=== PATIENT | female | born 1955 | race Caucasian/White ===

== ENCOUNTER 2023-07-10 11:45 | Emergency (ER) | payer OTHER ==
[~2023-07-10] VITALS: Ht 162.6 cm; Wt 63.5 kg
[2023-07-10 11:59] VITALS: BP_SYST 166; PULSE 76; RESP 20; TEMP 98.3; O2SAT 96
[2023-07-10] MEDS ORDERED: ONDANSETRON HCL 4 MG/2 ML VIAL IVP ONE (12:30)
[2023-07-10 12:51] LABS: BASOPHILS % (AUTO) 0.4 % (0.0-2.0); EOSINOPHILS % (AUTO) 0.4 % (0.0-4.0); HEMATOCRIT 43.7 % (36-48); HEMOGLOBIN 14.5 g/dL (12.0-16.0); LYMPHOCYTES # (AUTO) 1.8 K/uL (1.0-5.5); LYMPHOCYTES % (AUTO) 19.2 % (20.5-51.5); MEAN CORPUSCULAR HEMOGLOBIN 29 pg (27-31); MEAN CORPUSCULAR HGB CONC 33 % (32-36); MEAN CORPUSCULAR VOLUME 87 fL (79.0-98.0); MONOCYTES # (AUTO) 0.6 K/uL (0.0-1.0); MONOCYTES % (AUTO) 6.7 % (1.7-9.3); NEUTROPHILS # (AUTO) 6.7 K/uL (1.8-7.7); NEUTROPHILS % (AUTO) 73.3 % (40.0-70.0); PLATELET COUNT (AUTO) 202 K/uL (130-430); RED BLOOD CELL COUNT(AUTO) 5.01 MIL/uL (4.2-6.2); RED CELL DISTRIBUTION WIDTH 13.5 % (9.0-15.0); WHITE BLOOD COUNT (AUTO) 9.2 K/uL (4.8-10.8)
[2023-07-10 13:05] LABS: PROTHROMBIN TIME 10.2 SECS (9.5-12.5)
[2023-07-10 13:07] LABS: ALANINE AMINOTRANSFERASE 59 U/L (12-78); ANION GAP 10 (5-15); ASPARTATE AMINOTRANSFERASE 37 U/L (10-37); BILIRUBIN,DIRECT 0.1 mg/dL (0.0-0.3); CALCIUM 9.6 mg/dL (8.4-11.0); CARBON DIOXIDE 25 mmol/L (23-29); CHLORIDE 97 mmol/L (98-107); CREATININE 0.84 mg/dL (0.55-1.30); GFR AFRICAN AMERICAN 86 mL/min (>90); GLUCOSE 189 mg/dL (74-106); SODIUM SERUM 132 mmol/L (136-145); TOTAL BILIRUBIN 0.6 mg/dL (0.0-1.0); TOTAL PROTEIN, SERUM 7.8 g/dL (6.4-8.3); UREA NITROGEN, BLOOD 19 mg/dL (8-21)
[2023-07-10 13:10] LABS: GFR NON AFRICAN-AMERICAN 71 mL/min (>90); POTASSIUM 2.8 mmol/L (3.5-5.1)
[2023-07-10] MEDS ORDERED: LORazepam 2 MG/ML VIAL IVP ONE (13:15)
[2023-07-10] MEDS ORDERED: METOCLOPRAMIDE HCL 10 MG/2 ML VIAL IVP ONE (13:15)
[2023-07-10] MEDS ORDERED: MECLIZINE HCL 25 MG TABLET (ANITVERT) PO ONE (13:15)
[2023-07-10] MEDS ORDERED: POTASSIUM CHLORIDE 20 MEQ/PKT PACKET PO ONE (13:45)
[2023-07-10] MEDS ORDERED: cefTRIAXone 1 GM IVPB PREMIX 50 ML IV ONE (14:00)
[2023-07-10] MEDS ORDERED: ONDA-8 TL (14:28)
[2023-07-10] MEDS ORDERED: MECL-108 PO (14:28)
[2023-07-10] MEDS ORDERED: CEPH-548 PO (14:31)
[2023-07-10] MEDS ORDERED: ZIT250 PO (14:31)
[2023-07-10] MEDS ORDERED: POTA-197 PO (14:32)
[2023-07-10 15:06] VITALS: BP_SYST 135; PULSE 71; RESP 18; TEMP 98; O2SAT 97
== END 2023-07-10 14:56 | disposition home or self-care (01) ==
LOC: SED 11:45
DX: R42 Dizziness and giddiness (principal); J18.1 Lobar pneumonia, unspecified organism; E87.6 Hypokalemia; R11.2 Nausea with vomiting, unspecified; R10.13 Epigastric pain; I10 Essential (primary) hypertension; Z91.041 Radiographic dye allergy status; Z79.899 Other long term (current) drug therapy
CPT/HCPCS: 99285; 96365; 96375; 71045; 80076; 80048; 82962; 83880; 85025; 85610; 85730; 87040; 84484; 36415; 93005; 83605; J8597; J0696; J2060; J2765; J2405

== ENCOUNTER 2023-12-03 23:45 | Emergency (ER) | payer OTHER ==
[~2023-12-03] VITALS: Ht 162.6 cm; Wt 63.5 kg
[~2023-12-03 23:45] MED LIST: CEPH-548 PO; MECL-108 PO; ONDA-8 TL; POTA-197 PO; ZIT250 PO
[2023-12-03 23:58] VITALS: BP_SYST 142; PULSE 91; RESP 16; TEMP 97.7; O2SAT 100
[2023-12-04] MEDS ORDERED: SEMA0.258 (00:29)
[2023-12-04] MEDS ORDERED: LOSA1TAB43 PO (00:29)
[2023-12-04 00:38] LABS: BASOPHILS # (AUTO) 0.1 K/uL (0.0-0.2); EOSINOPHILS # (AUTO) 0.1 K/uL (0.0-0.4); HEMATOCRIT 42.2 % (36-48); HEMOGLOBIN 14.6 g/dL (12.0-16.0); LYMPHOCYTES % (AUTO) 18.7 % (20.5-51.5); MEAN CORPUSCULAR HEMOGLOBIN 30 pg (27-31); MEAN CORPUSCULAR HGB CONC 35 % (32-36); MEAN CORPUSCULAR VOLUME 86 fL (79.0-98.0); MONOCYTES % (AUTO) 8.9 % (1.7-9.3); NEUTROPHILS # (AUTO) 7.5 K/uL (1.8-7.7); NEUTROPHILS % (AUTO) 70.4 % (40.0-70.0); PLATELET COUNT (AUTO) 211 K/uL (130-430); RED BLOOD CELL COUNT(AUTO) 4.92 MIL/uL (4.2-6.2); RED CELL DISTRIBUTION WIDTH 13.7 % (9.0-15.0); WHITE BLOOD COUNT (AUTO) 10.7 K/uL (4.8-10.8)
[2023-12-04 00:40] LABS: BILIRUBIN,URINE NEGATIVE (NEGATIVE); BLOOD, URINE NEGATIVE (NEGATIVE); CLARITY/URINE CLEAR (CLEAR); COLOR,URINE YELLOW (YELLOW); GLUCOSE,URINE NEGATIVE (NEGATIVE); KETONES,URINE NEGATIVE (NEGATIVE); LEUKOCYTE ESTERASE ,URINE 1+ (NEGATIVE); NITRITE, URINE NEGATIVE (NEGATIVE); PROTEIN URINE 1+ (NEGATIVE); UROBILINOGEN,URINE 0.2 (0.2-1.0)
[2023-12-04 00:41] LABS: CALCIUM 9.2 mg/dL (8.4-11.0); CREATININE 0.98 mg/dL (0.55-1.30); POTASSIUM 3.1 mmol/L (3.5-5.1)
[2023-12-04 00:46] LABS: ALBUMIN 3.9 g/dL (3.4-4.8); BILIRUBIN,DIRECT 0.1 mg/dL (0.0-0.3); TOTAL BILIRUBIN 0.5 mg/dL (0.0-1.0); TOTAL PROTEIN, SERUM 8.2 g/dL (6.4-8.3)
[2023-12-04 01:00] LABS: BACTERIA,URINE FEW /HPF (None Seen)
[2023-12-04] MEDS ORDERED: cefTRIAXone 1 GM in LIDOCAINE 1%, 20 ML MDV 2.1 ML IM ONE (02:15)
[2023-12-04] MEDS ORDERED: ONDA-8 TL (02:26)
[2023-12-04] MEDS ORDERED: CIPR500T5 PO (02:26)
[2023-12-04] MEDS: cefTRIAXone 1 GM IVPB PREMIX 50 ML IV ONE (02:28)
[2023-12-04] MEDS: KETOROLAC TROMETHAMINE 30 MG VIAL IVP ONE ×2 (02:31→02:40)
[2023-12-04] MEDS: NACL 0.9% 1,000 ML IV ONE ×2 (02:40)
[2023-12-04 03:45] VITALS: BP_SYST 126; PULSE 90; RESP 16; TEMP 97.8; O2SAT 94
== END 2023-12-04 03:45 | disposition home or self-care (01) ==
LOC: SED 23:45
DX: N39.0 Urinary tract infection, site not specified (principal); I10 Essential (primary) hypertension; E11.9 Type 2 diabetes mellitus without complications; Z91.040 Latex allergy status
CPT/HCPCS: 99285; 80076; 80048; 81000; 81001; 85025; 87040; 36415; 83605; 74176; 96365; 96375; 81015; J0696; J1885

== ENCOUNTER 2024-02-06 16:00 | Emergency (ER) | payer OTHER ==
[~2024-02-06] VITALS: Ht 162.6 cm; Wt 63.5 kg
[~2024-02-06 16:00] MED LIST changes: +CIPR500T5 PO; +LOSA1TAB43 PO; +SEMA0.258
[2024-02-06 16:25] VITALS: BP_SYST 147; PULSE 79; RESP 18; TEMP 98.1; O2SAT 96
[2024-02-06 17:04] LABS: BASOPHILS # (AUTO) 0.2 K/uL (0.0-0.2); BASOPHILS % (AUTO) 2.6 % (0.0-2.0); EOSINOPHILS # (AUTO) 0.1 K/uL (0.0-0.4); EOSINOPHILS % (AUTO) 0.9 % (0.0-4.0); HEMATOCRIT 40.1 % (36-48); HEMOGLOBIN 13.9 g/dL (12.0-16.0); LYMPHOCYTES # (AUTO) 2.5 K/uL (1.0-5.5); LYMPHOCYTES % (AUTO) 30.2 % (20.5-51.5); MEAN CORPUSCULAR HEMOGLOBIN 30 pg (27-31); MEAN CORPUSCULAR HGB CONC 35 % (32-36); MEAN CORPUSCULAR VOLUME 87 fL (79.0-98.0); MONOCYTES # (AUTO) 0.9 K/uL (0.0-1.0); MONOCYTES % (AUTO) 11.5 % (1.7-9.3); NEUTROPHILS # (AUTO) 4.5 K/uL (1.8-7.7); NEUTROPHILS % (AUTO) 54.8 % (40.0-70.0); PLATELET COUNT (AUTO) 206 K/uL (130-430); RED BLOOD CELL COUNT(AUTO) 4.61 MIL/uL (4.2-6.2); RED CELL DISTRIBUTION WIDTH 13.7 % (9.0-15.0); WHITE BLOOD COUNT (AUTO) 8.2 K/uL (4.8-10.8)
[2024-02-06] MEDS: NACL 0.9% 1,000 ML IV ONE (17:14)
[2024-02-06 17:19] LABS: CALCIUM 9.4 mg/dL (8.4-11.0); CREATININE 0.98 mg/dL (0.55-1.30); POTASSIUM 3.4 mmol/L (3.5-5.1); TOTAL BILIRUBIN 0.5 mg/dL (0.0-1.0); TOTAL PROTEIN, SERUM 8.3 g/dL (6.4-8.3)
[2024-02-06 17:20] LABS: BILIRUBIN,DIRECT 0.1 mg/dL (0.0-0.3)
[2024-02-06] MEDS: PANTOPRAZOLE SODIUM 40 MG/VIAL (PROTONIX) IVP ONE (17:33)
[2024-02-06] MEDS: ONDANSETRON HCL 4 MG/2 ML VIAL IVP ONE (17:33)
[2024-02-06] MEDS: GLUCAGON,HUMAN RECOMBINANT 1 MG VIAL IVP ONE (17:34)
[2024-02-06] MEDS: KETOROLAC TROMETHAMINE 30 MG VIAL IVP ONE (18:40)
[2024-02-06 18:41] LABS: BILIRUBIN,URINE NEGATIVE (NEGATIVE); BLOOD, URINE NEGATIVE (NEGATIVE); COLOR,URINE YELLOW (YELLOW); GLUCOSE,URINE NEGATIVE (NEGATIVE); KETONES,URINE NEGATIVE (NEGATIVE); LEUKOCYTE ESTERASE ,URINE 2+ (NEGATIVE); NITRITE, URINE NEGATIVE (NEGATIVE); PROTEIN URINE NEGATIVE (NEGATIVE); UROBILINOGEN,URINE 0.2 (0.2-1.0)
[2024-02-06 18:49] LABS: CLARITY/URINE HAZY (CLEAR)
[2024-02-06 18:50] LABS: BACTERIA,URINE FEW /HPF (None Seen); MUCUS,URINE None Seen /LPF (None Seen); RBC,URINE 0-3 /HPF (0-3); URINE AMORPHOUS PHOSPHATES 1+ /HPF (None Seen)
[2024-02-06] MEDS: SULFAMETHOXAZOLE/TRIMETHOPR DS 1 TABLET PO ONE (20:23)
[2024-02-06] MEDS ORDERED: SULF1TAB48 PO (20:24)
[2024-02-06] MEDS ORDERED: ONDA-8 TL (20:24)
[2024-02-06] MEDS ORDERED: OMEP20CA15 PO (20:24)
[2024-02-06 20:40] VITALS: BP_SYST 138; PULSE 91; RESP 18; TEMP 98; O2SAT 98
== END 2024-02-06 20:33 | disposition home or self-care (01) ==
LOC: SED 16:00
DX: N39.0 Urinary tract infection, site not specified (principal); E11.9 Type 2 diabetes mellitus without complications; I10 Essential (primary) hypertension; Z91.041 Radiographic dye allergy status; Z79.899 Other long term (current) drug therapy; Z79.2 Long term (current) use of antibiotics
CPT/HCPCS: 99285; 74176; 96374; 96375; 96361; 80076; 80048; 81001; 83690; 85025; 87086; 36415; 93005; J1610; J1885; J2405; C9113; J7030; 81000; 81015